=== PATIENT | female | born 1950 | race African-American/Black ===

== ENCOUNTER 2017-02-19 19:04 | Inpatient (IN) | payer OTHER ==
[2017-02-19 19:53] VITALS: BMI 23.5
--- NOTE | 2017-02-19 21:33 | HP ---
CIWA Score - CIWA Score Nausea/Vomitin-Mild Nausea/No Vomiting Muscle Tremors: 4-Moderate,w/Arms Extend Anxiety: 4-Mod. Anxious/Guarded Agitation: 4-Moderately Restless Paroxysmal Sweats: 1-Minimal Palms Moist Orientation: 1-Uncertain about Date Tacttile Disturbances: 0-None Auditory Disturbances: 0-None Visual Disturbances: 0-None Headache: 1-Very Mild CIWA-Ar Total Score: 16 Admission ROS BHS - HPI Chief Complaint: withdrawal sx Allergies/Adverse Reactions: Allergies Allergy/AdvReac Type Severity Reaction Status Date / Time No Known Allergies Allergy Verified 02/19/17 19:56 History of Present Illness: 66 years old female with long history of alcohol nicotine dependence has asthma sore throat - last dose of azithromycine 500 mg today, hypertension hiv and bipolar ii is admitted to detox Exam Limitations: No Limitations - Ebola screening Have you traveled outside of the country in the last 21 days: No Have you had contact with anyone from an Ebola affected area: No Have you been sick,other than usual withdrawal symptoms: No Do you have a fever: No - Review of Systems Constitutional: Loss of Appetite, Unintentional Wgt. Loss, Unexplained wgt Loss EENT: reports: Blurred Vision (eye glasses), Dental Problems (teeth missing) Respiratory: reports: SOB with Exertion Cardiac: reports: No Symptoms Reported GI: reports: Nausea, Poor Appetite, Poor Fluid Intake, Abdominal cramping : reports: No Symptoms Reported Musculoskeletal: reports: No Symptoms Reported Integumentary: reports: Rash (right arm) Neuro: reports: Tremors Endocrine: reports: No Symptoms Reported Hematology: reports: No Symptoms Reported Psychiatric: reports: Judgement Intact, Anxious, Depressed Other Systems: Reviewed and Negative Patient History - Patient Medical History Hx Anemia: Yes (lab pending) Hx Asthma: Yes Hx Chronic Obstructive Pulmonary Disease (COPD): No Hx Cancer: No Hx Cardiac Disorders: No Hx Congestive Heart Failure: No Hx Hypertension: Yes Hx Hypercholesterolemia: No Hx Pacemaker: No HX Cerebrovascular Accident: No Hx Seizures: No Hx Dementia: No Hx Diabetes: No Hx Gastrointestinal Disorders: No Hx Liver Disease: No Hx Genitourinary Disorders: No Hx Sexually Transmitted Disorders: No Hx Renal Disease (ESRD): No Hx Thyroid Disease: No Hx Human Immunodeficiency Virus (HIV): Yes (age 21) Hx Hepatitis C: Yes Hx Depression: Yes Hx Suicide Attempt: No Hx Bipolar Disorder: Yes (on seroquel and prozac by hx ) Hx Schizophrenia: No - Patient Surgical History Past Surgical History: Yes Hx Neurologic Surgery: No Hx Cataract Extraction: No Hx Cardiac Surgery: No Hx Lung Surgery: No Hx Breast Surgery: No Hx Breast Biopsy: No Hx Abdominal Surgery: Yes (2011) Hx Appendectomy: No Hx Cholecystectomy: No Hx Genitourinary Surgery: No Hx Section: No Hx Orthopedic Surgery: No Hx Hysterectomy: No Anesthesia Reaction: No - PPD History Previous Implant?: Yes Documented Results: Negative w/proof Implanted On Prior [facility] Admission?: Yes Date: 10/14/14 PPD to be Administered?: Yes - Reproductive History Patient is a Female of Child Bearing Age (11 -55 yrs old): No Patient : No - Smoking Cessation Smoking history: Current every day smoker Have you smoked in the past 12 months: Yes Aproximately how many cigarettes per day: 5 Hx Chewing Tobacco Use: No Initiated information on smoking cessation: Yes 'Breaking Loose' booklet given: 02/19/17 - Substance & Tx. History Hx Alcohol Use: Yes Hx Substance Use: No Substance Use Type: Alcohol Hx Substance Use Treatment: Yes (2014 [facility]) - Substances Abused Alcohol Route: Oral Frequency: Daily Amount used: liquor- 5 pints, beer- 1 six pack Age of first use: 21 Date of Last Use: 02/19/17 Family Disease History - Family Disease History Family Disease History: Other: Father (), Mother () Admission Physical Exam BHS - Vital Signs Vital Signs: Vital Signs - 24 hr 02/19/17 19:50 Temperature 97.9 F Pulse Rate 102 H Respiratory 20 Rate Blood Pressure 147/81 - Physical General Appearance: Yes: Appropriately Dressed, Moderate Distress, Alcohol on Breath, Thin, Tremorous, Irritable, Sweating, Anxious HEENTM: Yes: Hearing grossly Normal, Normal ENT Inspection, Normocephalic, Normal Voice Respiratory: Yes: Chest Non-Tender, No Respiratory Distress, No Accessory Muscle Use, Wheezing Neck: Yes: Supple, Trachea in good position Breast: Yes: Breasts Symetrical Cardiology: Yes: Regular Rhythm, S1, S2, Tachycardia Abdominal: Yes: Non Tender, Soft, Surgical Scar Genitourinary: Yes: Within Normal Limits Back: Yes: Normal Inspection Musculoskeletal: Yes: full range of Motion, Gait Steady Extremities: Yes: Normal Range of Motion, Non-Tender, Tremors Neurological: Yes: Alert, Motor Strength 5/5, Normal Response, Depressed Affect Integumentary: Yes: Warm, Rash Lymphatic: Yes: Within Normal Limits - Diagnostic (1) Asthma Current Visit: Yes Status: Chronic Qualifiers: Asthma severity: mild persistent Asthma complication type: with status asthmaticus Qualified Code(s): J45.32 - Mild persistent asthma with status asthmaticus (2) HIV disease Current Visit: Yes Status: Chronic (3) Hypertension Current Visit: Yes Status: Chronic Qualifiers: Hypertension type: essential hypertension Qualified Code(s): I10 - Essential (primary) hypertension (4) Nicotine dependence Current Visit: Yes Status: Acute Qualifiers: Nicotine product type: cigarettes Substance use status: in withdrawal Qualified Code(s): F17.213 - Nicotine dependence, cigarettes, with withdrawal (5) Alcohol dependence with uncomplicated withdrawal Current Visit: Yes Status: Acute (6) Weight loss Current Visit: Yes Status: Acute (7) Hepatitis C Current Visit: Yes Status: Resolved Qualifiers: Viral hepatitis chronicity: carrier Qualified Code(s): B18.2 - Chronic viral hepatitis C (8) Atypical rash Current Visit: Yes Status: Chronic Comment: right arm Cleared for Admission S - Detox or Rehab [facility] Level of Care: Medically Managed Detox Regimen/Protocol: Librium [facility] Breath Alcohol Content Breath Alcohol Content: 0.025 Urine Pregancy Test - Result Urine Test Results: Negative- NO Line Present Urine Drug Screen - Results Drug Screen Negative: Yes
[2017-02-19] MEDS ORDERED: P-EPHED 60MG/TRIPROLIDI 2.5MG TABLET PO PRN (21:41)
[2017-02-19] MEDS ORDERED: LOPERAMIDE HCL 2 MG CAPSULE PO PRN (21:41)
[2017-02-19] MEDS ORDERED: chlordiazePOXIDE HCL 25 MG CAPSULE PO PRN (21:41)
[2017-02-19] MEDS ORDERED: guaiFENesin/D-METHORPHAN HB 10 ML UNIT-DOSE CUPS PO PRN (21:41)
[2017-02-19] MEDS ORDERED: MAGNESIUM CITRATE 300 ML BOTTLE PO PRN (21:41)
[2017-02-19] MEDS ORDERED: hydrOXYzine PAMOATE 50 MG CAPSULE (FP) PO PRN (21:41)
[2017-02-19] MEDS ORDERED: IBUPROFEN 400 MG TABLET (FP) PO PRN (21:41)
[2017-02-19] MEDS ORDERED: diphenhydrAMINE HCL 50 MG CAPSULE PO PRN (21:41)
[2017-02-19] MEDS ORDERED: ACETAMINOPHEN 325 MG TABLET (FP) PO PRN (21:41)
[2017-02-19] MEDS ORDERED: MENTHOL/PHENOL 1 EACH UD MM PRN (21:41)
[2017-02-19] MEDS ORDERED: NICOTINE POLACRILEX 2 MG GUM BUC PRN (21:41)
[2017-02-19] MEDS: chlordiazePOXIDE HCL 25 MG CAPSULE PO SCH (22:57)
[2017-02-19] MEDS: THIAMINE HCL 100 MG TABLET (FP) PO SCH (22:57)
[2017-02-19 23:09] LABS: URINE APPEARANCE CLOUDY; URINE BILIRUBIN NEGATIVE (NEGATIVE); URINE BLOOD 1+ (NEGATIVE); URINE COLOR LTYELLOW; URINE GLUCOSE (UA) NEGATIVE (NEGATIVE); URINE KETONE NEGATIVE (NEGATIVE); URINE LEUK ESTERASE 3+ (NEGATIVE); URINE NITRITE NEGATIVE (NEGATIVE); URINE PROTEIN NEGATIVE (NEGATIVE); URINE UROBILINOGEN NEGATIVE mg/dL (0.2-1.0)
[2017-02-19 23:19] LABS: URINE BACTERIA RARE /hpf (NONE SEEN); URINE HYALINE CAST 1 /lpf; URINE RBC 4 /hpf (0-3); URINE WBC 30 /hpf (3-5)
[2017-02-20] MEDS: chlordiazePOXIDE HCL 25 MG CAPSULE PO SCH ×4 (05:27→22:13)
[2017-02-20] MEDS ORDERED: PATIENT'S OWN MEDICATION (NON-FORMULARY) (Darunavir/Cobicistat [Prezcobix 800 Mg-150 Mg Ta PO SCH (10:00)
[2017-02-20] MEDS: TRIAMCINOLONE ACET 0.025% OINTMENT 15 GM TUBE TP SCH ×4 (10:00→22:14)
[2017-02-20 10:10] LABS: MCH 22.1 pg (25.7-33.7); MCHC 30.3 g/dl (32.0-36.0); MEAN CELL VOLUME 72.9 fl (80-96); MEAN PLT VOLUME 9.4 fl (7.5-11.1); PLATELET COUNT 301 K/MM3 (134-434); RDW 18.9 % (11.6-15.6); WHITE BLOOD COUNT 3.7 K/mm3 (4.0-10.0)
[2017-02-20] MEDS: PRENATAL VITAMINS W/ FOLIC ACID TABLET (FP) PO SCH (10:31)
[2017-02-20] MEDS: NICOTINE 14 MG/24 HOURS TOPICAL PATCH TD SCH (10:34)
--- NOTE | 2017-02-20 10:43 | PN ---
[facility] CIWA - CIWA Score Nausea/Vomitin Muscle Tremors: 3 Anxiety: 3 Agitation: 2 Paroxysmal Sweats: 1-Minimal Palms Moist Orientation: 0-Oriented Tacttile Disturbances: 1-Very Mild Itch/Numbness Auditory Disturbances: 1-Very Mild Visual Disturbances: 1-Very Mild Sensitivity Headache: 2-Mild CIWA-Ar Total Score: 17 BHS Progress Note (SOAP) Subjective: ALERT,IRRITABLE,ANXIOUS,INTERRUPTED SLEEP,TREMOR Objective: 02/20/17 10:38 Vital Signs Temperature 97.5 F L 02/20/17 10:22 Pulse Rate 92 H 02/20/17 10:22 Respiratory Rate 20 02/20/17 10:22 Blood Pressure 161/86 02/20/17 10:22 O2 Sat by Pulse Oximetry (%) EKG NSR NO CHEST PAIN,NO SOB,NO DIZZINESS 02/20/17 10:40 Laboratory Last Values WBC 3.7 K/mm3 (4.0-10.0) L 02/20/17 07:00 RBC 3.55 M/mm3 (3.60-5.2) L 02/20/17 07:00 Hgb 7.9 GM/dL (10.7-15.3) L 02/20/17 07:00 Hct 25.9 % (32.4-45.2) L 02/20/17 07:00 MCV 72.9 fl (80-96) L 02/20/17 07:00 MCH 22.1 pg (25.7-33.7) L 02/20/17 07:00 MCHC 30.3 g/dl (32.0-36.0) L 02/20/17 07:00 RDW 18.9 % (11.6-15.6) H 02/20/17 07:00 Plt Count 301 K/MM3 (134-434) D 02/20/17 07:00 MPV 9.4 fl (7.5-11.1) 02/20/17 07:00 Sodium 143 mmol/L (136-145) 02/20/17 07:00 Potassium 3.7 mmol/L (3.5-5.1) 02/20/17 07:00 Chloride 109 mmol/L (98-107) H 02/20/17 07:00 Urine Color Ltyellow 02/19/17 23:00 Urine Appearance Cloudy 02/19/17 23:00 Urine pH 5.0 (5.0-8.0) 02/19/17 23:00 Ur Specific [place] <= 1.005 (1.005-1.025) 02/19/17 23:00 Urine Protein Negative (NEGATIVE) 02/19/17 23:00 Urine Glucose (UA) Negative (NEGATIVE) 02/19/17 23:00 Urine Ketones Negative (NEGATIVE) 02/19/17 23:00 Urine Blood 1+ (NEGATIVE) H 02/19/17 23:00 Urine Nitrite Negative (NEGATIVE) 02/19/17 23:00 Urine Bilirubin Negative (NEGATIVE) 02/19/17 23:00 Urine Urobilinogen Negative mg/dL (0.2-1.0) 02/19/17 23:00 Ur Leukocyte Esterase 3+ (NEGATIVE) H D 02/19/17 23:00 Urine RBC 4 /hpf (0-3) 02/19/17 23:00 Urine WBC 30 /hpf (3-5) 02/19/17 23:00 Ur Epithelial Cells Rare /hpf (FEW) 02/19/17 23:00 Urine Bacteria Rare /hpf (NONE SEEN) 02/19/17 23:00 Hyaline Casts 1 /lpf 02/19/17 23:00 Assessment: 02/20/17 10:41 WITHDRAWAL SYMPTOM Plan: CONTINUE DETOX,FERROUS SULFATE 325 MGS PO TID,URINE FOR C/S R/O UTI,BACTRIM DS 1 TAB PO BID FOR UTI
[2017-02-20 11:06] LABS: ALK PHOS 93 U/L (45-117); ANION GAP 8 (8-16); BILIRUBIN,TOTAL 0.4 mg/dL (0.2-1.0); CALCIUM 8.9 mg/dL (8.5-10.1); CO2 26 mmol/L (21-32); CREATININE 1.2 mg/dL (0.55-1.02); GLUCOSE,RANDOM 98 mg/dL (74-106); SGOT/AST 32 U/L (15-37); SGPT/ALT 25 U/L (12-78)
[2017-02-20] MEDS: FERROUS SO4 325 MG TABLET (FP) PO SCH ×2 (13:02→16:55)
[2017-02-20] MEDS: MAG HYDROX/AL HYDROX/SIMETH 30 ML UNIT-DOSE CUP PO PRN (15:08)
[2017-02-20] MEDS: MAGNESIUM HYDROX 2400MG/30ML ORAL SUSPENSION 30 ML CUP PO PRN (15:10)
--- NOTE | 2017-02-20 16:31 | CONSULT ---
[facility] Psychiatric Consult - Data Date of interview: 02/20/17 Admission source: [facility] Identifying data: Readmission to [facility] for this 66 y/o AA female seeking detox treatment on for alcohol dependence.Patient is ,a mother of five,domiciled,unemployed and supported on SSI benefits. Substance Abuse History: Confirmed by patient. Smoking Cessation. Smoking history: Current every day smoker. Have you smoked in the past 12 months: Yes. Aproximately how many cigarettes per day: 5. Hx Chewing Tobacco Use: No. Initiated information on smoking cessation: Yes. 'Breaking Loose' booklet given : 02/19/17. - Substance & Tx. History. Hx Alcohol Use: Yes. Hx Substance Use : No. Substance Use Type: Alcohol. Hx Substance Use Treatment: Yes (2014 [facility]). - Substances Abused. Alcohol. Route: Oral. Frequency: Daily. Amount used: liquor- 5 pints, beer- 1 six pack. Age of first use: 21. Date of Last Use: 02/19/17 Medical History: Taken from chart (patient is falling asleep during the interview) : bronchial asthma,hepatitis C,hypertension,HIV infection and anemia. Psychiatric History: History is difficult to collect in the context of sedation.Ms Clifton does mention the diagnosis of Bipolar Disorder and treatment with seroquel.She also indicates OPD care at [facility].Reliability remains highly questionable.No reported history of suicide attempts. Physical/Sexual Abuse/Trauma History: No information at this time. Additional Comment: Drug Screen is negative. Mental Status Exam - Mental Status Exam Alert and Oriented to: Place, Person Cognitive Function: Impaired Patient Appearance: Well Groomed (appears stated age ; wears a black wig ; edentulous) Mood: Withdrawn (calm) Affect: Constricted Patient Behavior: Sedated Speech Pattern: Delayed, Slurred (non spontaneous) Voice Loudness: Moderately Soft/Quiet Thought Process: Disoriented (to time) Hallucinations: Denies Suicidal Ideation: Denies Homicidal Ideation: Denies Insight/Judgement: Poor Sleep: Well (intermittently somnolent during interview) Appetite: Fair (as evidenced by empty foodtray at bedside) Gait/Station: Other (not observed walking.Lying in bed) Psychiatric Findings - Problem List ([place] 1, 2,3) (1) Alcohol dependence with uncomplicated withdrawal Current Visit: Yes Status: Acute (2) Nicotine dependence Current Visit: Yes Status: Acute Qualifiers: Nicotine product type: cigarettes Substance use status: in withdrawal Qualified Code(s): F17.213 - Nicotine dependence, cigarettes, with withdrawal (3) Schizoaffective disorder Current Visit: No Status: Chronic Comment: According to records. (4) Weight loss Current Visit: Yes Status: Acute (5) Asthma Current Visit: Yes Status: Chronic Qualifiers: Asthma severity: mild persistent Asthma complication type: with status asthmaticus Qualified Code(s): J45.32 - Mild persistent asthma with status asthmaticus (6) HIV disease Current Visit: Yes Status: Chronic (7) Hypertension Current Visit: Yes Status: Chronic Qualifiers: Hypertension type: essential hypertension Qualified Code(s): I10 - Essential (primary) hypertension (8) Hepatitis C Current Visit: Yes Status: Resolved Qualifiers: Viral hepatitis chronicity: carrier Qualified Code(s): B18.2 - Chronic viral hepatitis C (9) Anemia Current Visit: Yes Status: Chronic - Initial Treatment Plan Initial Treatment Plan: Detoxification is under way.Seroquel is held until further orders.Reason : sedation.Observation.
[2017-02-20] MEDS: THIAMINE HCL 100 MG TABLET (FP) PO SCH (22:13)
[2017-02-20] MEDS: SULFAMETHOXAZOLE/TRIMETHOPRIM 800MG/160MG D.S. TABLET PO SCH (22:13)
[2017-02-20] MEDS ORDERED: amLODIPine BESYLATE 10 MG TABLET (FP) PO SCH (23:45)
[2017-02-21] MEDS: chlordiazePOXIDE HCL 25 MG CAPSULE PO SCH ×3 (05:21→17:07)
[2017-02-21] MEDS ORDERED: ALBUTEROL SO4 6.7 GM HFA INHALER IH PRN (06:53)
[2017-02-21] MEDS: FERROUS SO4 325 MG TABLET (FP) PO SCH ×3 (07:02→17:07)
[2017-02-21] MEDS: EMTRICITABINE 200MG/TENOFOVIR 300MG PO SCH (07:56)
[2017-02-21] MEDS: PATIENT'S OWN MEDICATION (NON-FORMULARY) (Darunavir/Cobicistat [Prezcobix 800 Mg-150 Mg Ta PO SCH (07:56)
[2017-02-21] MEDS ORDERED: LISINOPRIL 10 MG TABLET (FP) PO SCH (10:00)
[2017-02-21] MEDS: LISINOPRIL 10 MG TABLET (FP) PO SCH (10:02)
[2017-02-21] MEDS: NICOTINE 14 MG/24 HOURS TOPICAL PATCH TD SCH (10:02)
[2017-02-21] MEDS: SULFAMETHOXAZOLE/TRIMETHOPRIM 800MG/160MG D.S. TABLET PO SCH ×2 (10:02→22:36)
[2017-02-21] MEDS: amLODIPine BESYLATE 10 MG TABLET (FP) PO SCH (10:02)
[2017-02-21] MEDS: PRENATAL VITAMINS W/ FOLIC ACID TABLET (FP) PO SCH (10:02)
[2017-02-21] MEDS: TRIAMCINOLONE ACET 0.025% OINTMENT 15 GM TUBE TP SCH ×4 (10:02→22:35)
[2017-02-21] MEDS: BUDESONIDE/FORMETEROL FUMARATE 80/4.5 mcg INHALER IH SCH ×2 (10:03→22:36)
--- NOTE | 2017-02-21 11:31 | PN ---
S CIWA - CIWA Score Nausea/Vomitin Muscle Tremors: 4-Moderate,w/Arms Extend Anxiety: 4-Mod. Anxious/Guarded Agitation: 4-Moderately Restless Paroxysmal Sweats: 3 Orientation: 0-Oriented Tacttile Disturbances: 0-None Auditory Disturbances: 0-None Visual Disturbances: 0-None Headache: 0-None Present CIWA-Ar Total Score: 18 BHS Progress Note (SOAP) Subjective: nausea, sweats, interrupted sleep, anxiety, tremors Objective: 02/21/17 11:30 Vital Signs - 8 hr 02/21/17 02/21/17 06:23 09:48 Temperature 98.2 F 96.1 F L Pulse Rate 102 H 117 H Respiratory 20 20 Rate Blood Pressure 137/69 157/80 Laboratory Tests 02/19/17 02/20/17 02/20/17 23:00 07:00 07:00 WBC 3.7 L RBC 3.55 L Hgb 7.9 L Hct 25.9 L MCV 72.9 L MCH 22.1 L MCHC 30.3 L RDW 18.9 H Plt Count 301 D MPV 9.4 Sodium 143 Potassium 3.7 Chloride 109 H Carbon Dioxide 26 Anion Gap 8 BUN 18 D Creatinine 1.2 H D Creat Clearance w eGFR 44.68 Random Glucose 98 D Calcium 8.9 Total Bilirubin 0.4 D AST 32 D ALT 25 D Alkaline Phosphatase 93 D Total Protein 7.0 Albumin 3.0 L Urine Color Ltyellow Urine Appearance Cloudy Urine pH 5.0 Ur Specific [place] <= 1.005 Urine Protein Negative Urine Glucose (UA) Negative Urine Ketones Negative Urine Blood 1+ H Urine Nitrite Negative Urine Bilirubin Negative Urine Urobilinogen Negative Ur Leukocyte Esterase 3+ H D Urine RBC 4 Urine WBC 30 Ur Epithelial Cells Rare Urine Bacteria Rare Hyaline Casts 1 RPR Titer 02/20/17 07:00 WBC RBC Hgb Hct MCV MCH MCHC RDW Plt Count MPV Sodium Potassium Chloride Carbon Dioxide Anion Gap BUN Creatinine Creat Clearance w eGFR Random Glucose Calcium Total Bilirubin AST ALT Alkaline Phosphatase Total Protein Albumin Urine Color Urine Appearance Urine pH Ur Specific [place] Urine Protein Urine Glucose (UA) Urine Ketones Urine Blood Urine Nitrite Urine Bilirubin Urine Urobilinogen Ur Leukocyte Esterase Urine RBC Urine WBC Ur Epithelial Cells Urine Bacteria Hyaline Casts RPR Titer Nonreactive Assessment: 02/21/17 11:30 withdrawawl sx, anemia, hypoalbuminema Plan: cont detox, clonidine, iron supplements, repeat labs
[2017-02-21] MEDS ORDERED: cloNIDine HCL 0.1 MG TABLET PO ONE (12:00)
--- NOTE | 2017-02-21 12:44 | EKG ---
Test Reason : Blood Pressure : / mmHG Vent. Rate : 083 BPM Atrial Rate : 083 BPM P-R Int : 176 ms QRS Dur : 090 ms QT Int : 368 ms P-R-T Axes : 060 006 032 degrees QTc Int : 432 ms NORMAL SINUS RHYTHM POSSIBLE LEFT ATRIAL ENLARGEMENT SEPTAL INFARCT , AGE UNDETERMINED ABNORMAL ECG NO PREVIOUS ECGS AVAILABLE Confirmed by KATIE CALIXTO MD ([id number]) on 02/21/2017 12:43:33 PM Referred By: Timur Webber Confirmed By:KATIE CALIXTO MD
[2017-02-21] MEDS: chlordiazePOXIDE 5 MG CAPSULE PO SCH (22:36)
[2017-02-21] MEDS: THIAMINE HCL 100 MG TABLET (FP) PO SCH (22:37)
[2017-02-22] MEDS: chlordiazePOXIDE 5 MG CAPSULE PO SCH ×3 (05:53→17:24)
[2017-02-22] MEDS: FERROUS SO4 325 MG TABLET (FP) PO SCH ×3 (07:00→17:23)
[2017-02-22] MEDS: EMTRICITABINE 200MG/TENOFOVIR 300MG PO SCH (10:21)
[2017-02-22] MEDS: PRENATAL VITAMINS W/ FOLIC ACID TABLET (FP) PO SCH (10:21)
[2017-02-22] MEDS: amLODIPine BESYLATE 10 MG TABLET (FP) PO SCH (10:21)
[2017-02-22] MEDS: SULFAMETHOXAZOLE/TRIMETHOPRIM 800MG/160MG D.S. TABLET PO SCH ×2 (10:21→23:05)
[2017-02-22] MEDS: NICOTINE 14 MG/24 HOURS TOPICAL PATCH TD SCH (10:22)
[2017-02-22] MEDS: BUDESONIDE/FORMETEROL FUMARATE 80/4.5 mcg INHALER IH SCH ×2 (10:23→23:05)
[2017-02-22] MEDS: PATIENT'S OWN MEDICATION (NON-FORMULARY) (Darunavir/Cobicistat [Prezcobix 800 Mg-150 Mg Ta PO SCH (10:23)
[2017-02-22] MEDS: TRIAMCINOLONE ACET 0.025% OINTMENT 15 GM TUBE TP SCH ×4 (10:23→23:04)
[2017-02-22] MEDS: LISINOPRIL 10 MG TABLET (FP) PO SCH (10:23)
[2017-02-22] MEDS: MAGNESIUM HYDROX 2400MG/30ML ORAL SUSPENSION 30 ML CUP PO PRN (10:27)
--- NOTE | 2017-02-22 13:07 | PN ---
BHS Progress Note (SOAP) Subjective: nausa, sweats, interrupted sleep, anxiety, tremors Objective: 02/22/17 13:06 Vital Signs - 8 hr 02/22/17 02/22/17 06:34 09:29 Temperature 96.9 F L 96.1 F L Pulse Rate 65 95 H Respiratory 18 16 Rate Blood Pressure 120/65 173/90 Laboratory Tests 02/19/17 02/20/17 02/20/17 23:00 07:00 07:00 WBC 3.7 L RBC 3.55 L Hgb 7.9 L Hct 25.9 L MCV 72.9 L MCH 22.1 L MCHC 30.3 L RDW 18.9 H Plt Count 301 D MPV 9.4 Sodium 143 Potassium 3.7 Chloride 109 H Carbon Dioxide 26 Anion Gap 8 BUN 18 D Creatinine 1.2 H D Creat Clearance w eGFR 44.68 Random Glucose 98 D Calcium 8.9 Total Bilirubin 0.4 D AST 32 D ALT 25 D Alkaline Phosphatase 93 D Total Protein 7.0 Albumin 3.0 L Urine Color Ltyellow Urine Appearance Cloudy Urine pH 5.0 Ur Specific [place] <= 1.005 Urine Protein Negative Urine Glucose (UA) Negative Urine Ketones Negative Urine Blood 1+ H Urine Nitrite Negative Urine Bilirubin Negative Urine Urobilinogen Negative Ur Leukocyte Esterase 3+ H D Urine RBC 4 Urine WBC 30 Ur Epithelial Cells Rare Urine Bacteria Rare Hyaline Casts 1 RPR Titer 02/20/17 07:00 WBC RBC Hgb Hct MCV MCH MCHC RDW Plt Count MPV Sodium Potassium Chloride Carbon Dioxide Anion Gap BUN Creatinine Creat Clearance w eGFR Random Glucose Calcium Total Bilirubin AST ALT Alkaline Phosphatase Total Protein Albumin Urine Color Urine Appearance Urine pH Ur Specific [place] Urine Protein Urine Glucose (UA) Urine Ketones Urine Blood Urine Nitrite Urine Bilirubin Urine Urobilinogen Ur Leukocyte Esterase Urine RBC Urine WBC Ur Epithelial Cells Urine Bacteria Hyaline Casts RPR Titer Nonreactive Assessment: 02/22/17 13:07 withdrwal sx, contaminated urine specimen, anemia, hypoalbuminemia Plan: cont detox, repeat u/a, iron supplements, hydrate
[2017-02-22 16:12] LABS: URINE APPEARANCE CLEAR; URINE BILIRUBIN NEGATIVE (NEGATIVE); URINE BLOOD NEGATIVE (NEGATIVE); URINE COLOR STRAW; URINE GLUCOSE (UA) NEGATIVE (NEGATIVE); URINE KETONE NEGATIVE (NEGATIVE); URINE NITRITE NEGATIVE (NEGATIVE); URINE PROTEIN NEGATIVE (NEGATIVE); URINE UROBILINOGEN NEGATIVE mg/dL (0.2-1.0)
[2017-02-22 16:22] LABS: URINE LEUK ESTERASE 3+ (NEGATIVE)
[2017-02-22 16:45] LABS: URINE BACTERIA RARE /hpf (NONE SEEN); URINE MUCUS RARE; URINE RBC 4 /hpf (0-3); URINE WBC 1 /hpf (3-5)
[2017-02-22] MEDS: chlordiazePOXIDE HCL 10 MG CAPSULE PO SCH (23:05)
[2017-02-22] MEDS: THIAMINE HCL 100 MG TABLET (FP) PO SCH (23:05)
[2017-02-23] MEDS: chlordiazePOXIDE HCL 10 MG CAPSULE PO SCH ×2 (05:22→11:03)
[2017-02-23] MEDS: MAG HYDROX/AL HYDROX/SIMETH 30 ML UNIT-DOSE CUP PO PRN (05:23)
[2017-02-23] MEDS: PATIENT'S OWN MEDICATION (NON-FORMULARY) (Darunavir/Cobicistat [Prezcobix 800 Mg-150 Mg Ta PO SCH (08:21)
[2017-02-23] MEDS: FERROUS SO4 325 MG TABLET (FP) PO SCH ×2 (08:21→11:04)
[2017-02-23] MEDS: EMTRICITABINE 200MG/TENOFOVIR 300MG PO SCH (08:22)
--- NOTE | 2017-02-23 09:20 | DS ---
[facility] Detox Discharge Summary Admission Date: 02/19/17 Discharge Date: 02/23/17 - History Present History: Alcohol Dependence - Physical Exam Results Vital Signs: Vital Signs Temperature 96.1 F L 02/23/17 06:00 Pulse Rate 97 H 02/23/17 06:00 Respiratory Rate 18 02/23/17 06:00 Blood Pressure 128/62 02/23/17 06:00 O2 Sat by Pulse Oximetry (%) - Treatment Hospital Course: Detox Protocol Followed, Detoxed Safely, Responded well, Discharged Condition Good, Rehab Referral Accepted - Medication Discharge Medications: Ambulatory Orders Chlorpromazine [Thorazine -] 100 mg PO DAILY 10/12/14 Quetiapine Fumarate [Seroquel -] 300 mg PO HS 10/12/14 Quetiapine Fumarate [Seroquel -] 300 mg PO HS #30 tablet 10/13/14 Albuterol Sulfate Inhaler - [Ventolin HFA Inhaler -] 1 - 2 inh PO QID #1 inh Atazanavir [Reyataz -] 300 mg PO DAILY #30 capsule 10/16/14 Darunavir Ethanolate [Prezista -] 800 mg PO DAILY #30 tab 10/16/14 Emtricitabine/Tenofovir [Truvada -] 1 tab PO DAILY@0800 #0 tablet 10/16/14 Ferrous Sulfate [Feosol] 325 mg PO TIDCM #90 ud 10/16/14 Brompheniramin/Pseudoephedrine [Brotapp Liquid] 237 ml PO QID PRN 02/19/17 Darunavir/Cobicistat [Prezcobix 800 mg-150 mg Tablet] 1 each PO DAILY 02/19/17 Amlodipine Besylate [Norvasc -] 10 mg PO DAILY 02/20/17 Lisinopril [Prinivil] 10 mg PO DAILY 02/20/17 - Diagnosis (1) Alcohol dependence with uncomplicated withdrawal Current Visit: Yes Status: Chronic (2) Nicotine dependence Current Visit: Yes Status: Chronic Qualifiers: Nicotine product type: cigarettes Substance use status: uncomplicated Qualified Code(s): F17.210 - Nicotine dependence, cigarettes, uncomplicated (3) Weight loss Current Visit: Yes Status: Acute (4) Anemia Current Visit: Yes Status: Chronic Qualifiers: Anemia type: unspecified type Qualified Code(s): D64.9 - Anemia, unspecified (5) Asthma Current Visit: Yes Status: Chronic Qualifiers: Asthma severity: mild persistent Asthma complication type: with status asthmaticus Qualified Code(s): J45.32 - Mild persistent asthma with status asthmaticus (6) Atypical rash Current Visit: Yes Status: Chronic (7) HIV disease Current Visit: Yes Status: Chronic (8) Hypertension Current Visit: Yes Status: Chronic Qualifiers: Hypertension type: essential hypertension Qualified Code(s): I10 - Essential (primary) hypertension (9) Hepatitis C Current Visit: Yes Status: Resolved Qualifiers: Viral hepatitis chronicity: carrier Qualified Code(s): B18.2 - Chronic viral hepatitis C (10) Alcohol dependence Current Visit: Yes Status: Chronic Qualifiers: Substance use status: uncomplicated Qualified Code(s): F10.20 - Alcohol dependence, uncomplicated (11) Schizoaffective disorder Current Visit: No Status: Chronic Qualifiers: Schizoaffective disorder type: unspecified Qualified Code(s): F25.9 - Schizoaffective disorder, unspecified - AMA Did Patient Leave Against Medical Advice: No
[2017-02-23 10:45] VITALS: BP 120/69; PULSE 88; TEMP 98.2
[2017-02-23] MEDS: SULFAMETHOXAZOLE/TRIMETHOPRIM 800MG/160MG D.S. TABLET PO SCH (11:00)
[2017-02-23] MEDS: TRIAMCINOLONE ACET 0.025% OINTMENT 15 GM TUBE TP SCH (11:00)
[2017-02-23] MEDS: amLODIPine BESYLATE 10 MG TABLET (FP) PO SCH (11:02)
[2017-02-23] MEDS: BUDESONIDE/FORMETEROL FUMARATE 80/4.5 mcg INHALER IH SCH (11:03)
[2017-02-23] MEDS: LISINOPRIL 10 MG TABLET (FP) PO SCH (11:03)
[2017-02-23] MEDS: NICOTINE 14 MG/24 HOURS TOPICAL PATCH TD SCH (11:03)
[2017-02-23] MEDS: PRENATAL VITAMINS W/ FOLIC ACID TABLET (FP) PO SCH (11:03)
== END 2017-02-23 10:03 | disposition home or self-care (01) | DRG 897 ==
LOC: YASAS 19:04 → Y6N 20:38
PROVIDERS: ADMIT Internal Medicine Addiction Medicine; ATTEND Internal Medicine Addiction Medicine
PROC: HZ2ZZZZ Detoxification Services for Substance Abuse Treatment (ICD-10-PCS; principal; 2017-02-23)
DX: F10.230 Alcohol dependence with withdrawal, uncomplicated (principal); J45.32 Mild persistent asthma with status asthmaticus; F17.210 Nicotine dependence, cigarettes, uncomplicated; F25.9 Schizoaffective disorder, unspecified; I10 Essential (primary) hypertension; B18.2 Chronic viral hepatitis C; D64.9 Anemia, unspecified; Z21 Asymptomatic human immunodeficiency virus [HIV] infection status; R21 Rash and other nonspecific skin eruption; R63.4 Abnormal weight loss; Z68.23 Body mass index [BMI] 23.0-23.9, adult
CPT/HCPCS: 36415; 80053; 81003; 81015; 85027; 86593; 87086; 93005; 93010

== ENCOUNTER 2022-09-23 12:57 | Emergency (ER) | payer OTHER ==
[2022-09-23 13:04] VITALS: BMI 22.2
[2022-09-23 15:49] VITALS: BP 120/70; PULSE 84; RESP 16; TEMP 98.3
[2022-09-23 16:00] LABS: HEMATOCRIT 39.4 % (32.4-45.2); HEMOGLOBIN 13.1 GM/dL (10.7-15.3); MCH 31.3 pg (25.7-33.7); MCHC 33.3 g/dl (32.0-36.0); MEAN CELL VOLUME 93.9 fl (80-96); MEAN PLT VOLUME 9.9 fl (7.5-11.1); PLATELET COUNT 147 10^3/uL (134-434); WHITE BLOOD COUNT 3.6 K/mm3 (4.0-10.0)
[2022-09-23 16:07] LABS: ALBUMIN 2.8 g/dl (3.4-5.0); BLOOD UREA NITROGEN 10.9 mg/dL (7-18)
[2022-09-23 16:10] LABS: CREATININE 0.7 mg/dL (0.55-1.3)
[2022-09-23 16:11] LABS: BILIRUBIN,TOTAL 0.3 mg/dL (0.2-1); TOT PROT 7.9 g/dl (6.4-8.2)
[2022-09-23 16:38] LABS: ANISOCYTOSIS 1+; MACROCYTOSIS 0
[2022-09-23 17:40] LABS: URINE APPEARANCE CLEAR; URINE BILIRUBIN NEGATIVE (NEGATIVE); URINE COLOR YELLOW; URINE GLUCOSE (UA) NEGATIVE (NEGATIVE); URINE KETONE NEGATIVE (NEGATIVE); URINE LEUK ESTERASE NEGATIVE (NEGATIVE); URINE NITRITE NEGATIVE (NEGATIVE); URINE PROTEIN NEGATIVE (NEGATIVE)
== END 2022-09-23 18:30 | disposition home or self-care (01) ==
LOC: JER 12:57
DX: R32 Unspecified urinary incontinence (principal)
CPT/HCPCS: 36415; 80053; 81003; 82962; 85025; 87086; 93005; 93010; 99284-25